=== PATIENT | female | born 1990 | race Caucasian/White ===

== ENCOUNTER 2016-07-27 05:53 | Emergency (ER) | payer BC ==
[2016-07-27 06:15] LABS: URINE BILIRUBIN 1+ (NEGATIVE); URINE BLOOD 3+ (NEGATIVE); URINE GLUCOSE (UA) NORMAL (NORMAL); URINE KETONE 1+ (NEGATIVE); URINE LEUKOCYTE ESTERASE 2+ (NEGATIVE); URINE NITRATE NEGATIVE (NEGATIVE); URINE PROTEIN 3+ (NEGATIVE); UROBILINOGEN NORMAL mg/dL (<1.0)
[2016-07-27 06:48] LABS: URINE WBC TNTC WITH CLUMPING /[HPF] (0-5)
== END 2016-07-27 07:55 | disposition home or self-care (01) ==
LOC: ER 05:53
PROVIDERS: Emergency Medicine
DX: N30.80 Other cystitis without hematuria (principal); R10.9 Unspecified abdominal pain; Z87.442 Personal history of urinary calculi; R11.0 Nausea; R51 Headache; Z88.0 Allergy status to penicillin; Z91.040 Latex allergy status
CPT/HCPCS: 74150; 81001; 81025; 87086; 87186; 96372; 99284-25